=== PATIENT | female | born 1955 | race Caucasian/White ===

== ENCOUNTER 2016-11-15 18:42 | Emergency (ER) | payer MEDICAID, OTHER ==
[2016-11-15] MEDS ORDERED: PREDNISONE 20 MG TABLET ONE (21:06)
== END 2016-11-15 21:18 | disposition home or self-care (01) ==
LOC: ED 18:42
DX: M17.12 Unilateral primary osteoarthritis, left knee (principal)
CPT/HCPCS: 99283 ×2; J7512

== ENCOUNTER 2016-12-23 14:12 | Emergency (ER) | payer MEDICAID | END 2016-12-23 16:18 | disposition home or self-care (01) | LOC: ED 14:12 | DX: M17.0 Bilateral primary osteoarthritis of knee (principal); J44.9 Chronic obstructive pulmonary disease, unspecified; Z87.891 Personal history of nicotine dependence ==